=== PATIENT | male | born 1955 | race Caucasian/White ===

== ENCOUNTER → 2020-07-19 | Day surgery (SDC) | payer OTHER, MEDICARE ==
[~2020-07-19] VITALS: Ht 165.1 cm; Wt 74.1 kg
[~2020-07-19] MED LIST: ASPIRIN EC81 MG PO; NORCO 5-325 TA1 EACH PO; ONDANSETRON ODT8 MG PO
[2020-07-19 08:14] LABS: HCT 45.1 % (42.0-52.0); HGB 15.3 g/dl (13.2-18.0); MCHC 33.9 g/dL (32.0-36.0); MCV 91.5 fL (78.0-100.0); MPV 11.4 fL (6.0-9.5); RBC 4.93 M/uL (4.70-6.00); RDW 13.2 % (11.5-14.0); WBC 7.8 K/uL (4.0-10.5)
[2020-07-19 08:35] LABS: ALBUMIN 3.7 g/dL (3.4-5.0); BILIRUBIN - TOTAL 0.9 mg/dL (0.2-1.0); BUN/CREAT RATIO (CALC) 14.4 RATIO; CREATININE 1.11 mg/dL (0.67-1.17); GLOBULIN (CALCULATION) 3.6 g/dL; POTASSIUM 4.2 mmol/L (3.5-5.1); TOTAL PROTEIN 7.3 g/dL (6.4-8.2)
== END | disposition home or self-care (01) ==
LOC: FAS 07:06
PROVIDERS: Surgery
DX: K40.20 Bilateral inguinal hernia, without obstruction or gangrene, not specified as recurrent (principal); E78.5 Hyperlipidemia, unspecified; J42 Unspecified chronic bronchitis; Z79.899 Other long term (current) drug therapy; Z86.16 Personal history of COVID-19; Z87.891 Personal history of nicotine dependence
CPT/HCPCS: 36415; 80053; C1781; J0690; J1170; J2250; J2405; J2704; J3010; J7120